=== PATIENT | male | born 1960 | race African-American/Black ===

== ENCOUNTER 2021-12-28 22:58 | Emergency (ER) | payer MEDICAID ==
[~2021-12-28] VITALS: Ht 175.3 cm; Wt 116.5 kg
[2021-12-29] MEDS ORDERED: ASPIRIN 81MG TABLET PO ONE (00:30)
[2021-12-29 00:40] LABS: BASOPHILS % 1.3 % (0.0-2.0); EOSINOPHILS % 1.6 % (0.0-5.0); HEMATOCRIT. 35.4 % (42.0-52.0); HEMOGLOBIN. 11.7 g/dL (14.0-18.0); LYMPHOCYTES % 37.6 % (20.0-50.0); MEAN CORPUSCULAR HEMOGLOBIN 30.2 pg (28.0-32.0); MEAN CORPUSCULAR VOLUME 91.1 fL (80.0-94.0); MEAN PLATELET VOLUME 8.5 fl (7.4-10.4); MONOCYTES % 8.4 % (2.0-8.0); NEUTROPHILS % 51.1 % (40.0-76.0); PLATELET 177 x1000/uL (130-400); RED BLOOD CELL COUNT 3.89 mill/uL (4.7-6.1); RED CELL DISTRIBUTION WIDTH 12.5 % (11.6-14.6)
[2021-12-29 00:46] LABS: CHLORIDE 107 mEq/L (98-107)
[2021-12-29] MEDS: NITROGLYCERIN 0.4MG TABLET SL SL PRN ×2 (03:19→03:31)
[2021-12-29 04:00] VITALS: BP 144/81
== END 2021-12-29 06:25 | disposition left against medical advice (07) ==
LOC: ER 22:58 → ENRESERV 12-29 07:25 → CANBEDREQ 12-29 19:59
DX: R07.89 Other chest pain (principal); I47.1 Supraventricular tachycardia; R79.89 Other specified abnormal findings of blood chemistry; Z86.39 Personal history of other endocrine, nutritional and metabolic disease; Z87.891 Personal history of nicotine dependence
CPT/HCPCS: 36415; 71045; 80053; 83880; 84484; 85025; 93005; 99285